=== PATIENT | female | born 1960 | race Hispanic/Latino ===

== ENCOUNTER 2016-12-25 14:06 | Inpatient (IN) | payer MEDICARE ==
[2016-12-25] VITALS (7 sets, daily range): BP systolic 100–128; BP diastolic 62–83; PULSE 74–122; RESP 15–26; O2SAT 95–100
[~2016-12-25] VITALS: Ht 157.5 cm; Wt 96.6 kg
[~2016-12-25 14:06] MED LIST: DSS100 PO; GABA300C PO; HYDR-3479 PO; INSLIS SUBQ; INSU100V7 SUBQ; METF10002 PO
--- NOTE | 2016-12-25 14:48 | ED.REPORT ---
HPI-Abd Pain F 40 and Over Date of Service December 25, 2016 ED Provider: Vini Huertas MD Patient is a 56 year old female with history of HTN and DM presents to [facility] ED accompanied by her c/o RLQ abdominal pain and fever for about three days. Patient reports being seen in the clinic on 12/20 and given an antibiotic (patient does not remember the name). She reports worsening of her symptoms since then: nausea, decreased appetite, increased urination, headache, weakness, chest pain and shortness of breath. Her blood glucose is higher then usual as well; its been as high as 570 (usually blood sugar is about 200); she is on insulin and metformin daily. Nursing Notes Stated Complaint: TEMP/ABDOMINAL PAIN-SENT FROM Chief Complaint: Female Abdominal Pain Nursing Notes Reviewed: Yes Allergies: Coded Allergies: No Known Allergies (Verified , 03/16/04) Scheduled Citalopram Hydrobromide (Celexa) 20 Mg Tablet 20 MG PO DAILY Gabapentin (Gabapentin) 300 Mg Capsule 300 MG PO HS Insulin Aspart (NovoLOG U-100 Pen) 100 Unit/Ml Insuln.pen 20 SUBQ TIDWM Insulin Glargine (Lantus U100 Solostar Insulin Pen) 100 Unit/1 Ml Insuln.pen 50 UNIT SUBQ HS Lisinopril (Lisinopril) 5 Mg Tablet 5 MG PO DAILY Metformin (Glucophage) 1,000 Mg Tablet 1,000 MG PO BID Ranitidine (Ranitidine) 150 Mg Capsule 150 MG PO BID Scheduled PRN Cyclobenzaprine (Cyclobenzaprine) 10 Mg Tablet 10 MG PO TID PRN PRN Spasm General Time Seen by MD: 14:46 Chief Complaint Abdominal pain, Flank pain right (with the assistance of spanish interpreter/translator), Nausea Hx Obtained From: Patient Arrived By: Walk-in Sudden in Onset?: No Onset Occurred: 6 days ago Symptom Duration: Since onset Progression since Onset: Constant, Gradually worsening Location: : Flank right: RLQ Quality: Painful Severity: Current: Moderate Severity: Maximum: Severe Associated with: Reports: Chest pain, Chills, Fever, Nausea, Urinary frequency Recent Healthcare: No recent hospitalization, Recent doctor visit Similar Sx Previous: Yes Past Medical History Past Medical History Reports: Diabetes mellitus, Hypertension Past Surgical History Reports: Cholecystectomy Family History Noncontributory Smoking History Never Smoker Social History Alcohol Use: Denies alcohol use Drug Use: Denies drug use Other Social History: Local resident Ambulatory Status Independent Review of Systems +elevated blood sugar Constitutional: Reports: Fever, Weakness - generalized Respiratory: Reports: Shortness of breath, Denies: Dyspnea on exertion, Pleuritic pain, Wheezing GI: Reports: Abdominal pain, Nausea, Denies: Constipation, Diarrhea, Vomiting Female: Reports: Urinary frequency, Denies: Dysuria, Hematuria, Incontinence Musculoskeletal: Denies: Back pain, Extremity pain, Extremity swelling Complete sys rev & neg: except as marked. Physical Exam Vital Signs Vital Signs (First) Date Time Temp Pulse Resp B/P Pulse Ox O2 Delivery O2 Flow Rate FiO2 12/25/16 14:11 39.5 122 18 128/83 98 Room Air Initial VS: Reviewed, Vital signs abnormal (Pulse 122, temperature 39.5) General/Constitutional: Awake, Alert, No acute distress, Well appearing, Well developed, Well hydrated, Well nourished, Cooperative Respiratory / Chest: Atraumatic, Breath sounds NL, Breath sounds = bilat, No respiratory distress, No rales, No rhonchi, No wheezing Cardiovascular: Regular rhythm, Heart sounds NL, No murmurs, Cap refill not delayed Heart Rate / Rhythm: Positive: Tachycardia Abdomen: Atraumatic, Soft, No guarding, No rebound, BS normoactive Tenderness/Guarding/Rebound: Positive: Tender RLQ... (Moderate), Tender flank R Flank / Spine / Paraspinal: Positive: Flank tender R Head / Eyes: Atraumatic, Normocephalic, PERRL, EOMI, No scleral icterus, Conjunctiva NL ENT: Atraumatic, Mucous membranes moist, Nose exam NL Skin: No rash, Warm, Dry, Intact Lower Extremity / Pelvis / MS: No swelling, Non-tender, No erythema Interpretation & Diagnostics Lab Results Interpretation Result Diagram: 12/25/16 1615 12/25/16 1615 Test 12/25/16 15:56 12/25/16 16:15 Urine Color Yellow (YELLOW) Urine Appearance Clear (CLEAR,HAZY) Urine pH 5.0 (5.0-8.0) Urine Specific [place] 1.025 (1.003-1.035) Urine Protein 30mg/dL (NEG,TRACE) Urine Glucose (UA) 500mg/dL (NEGATIVE) Urine Ketones 15mg/dL (NEGATIVE) Urine Occult Blood Moderate (NEGATIVE) Urine Nitrite Negative (NEGATIVE) Urine Bilirubin Negative (NEGATIVE) Urine Urobilinogen Normalmg/dL (NORMAL) Urine Leukocyte Esterase Negative (NEGATIVE) Urine RBC 0-2/hpf (0-2) Urine WBC 0-5/hpf (0-5) Urine Epithelial Cells Few/hpf (NONE-MOD) Urine Crystals None seen (NONE SEEN) Urine Bacteria Few/hpf (NONE-FEW) Urine Hyaline Casts None/lpf (NONE) Urine Granular Casts Occasional (NONE SEEN) Urine Waxy Casts None seen (NONE SEEN) Urine Red Blood Cell Casts None seen (NONE SEEN) Urine White Blood Cell Casts None seen (NONE SEEN) Urine Mucus None seen (None Seen) Urine Trichomonas None seen (NONE SEEN) Urine Yeast None (NONE SEEN) Urinalysis Comment Amorphous sediment Urine Culture Reflexed Not indicated White Blood Count 8.2th/mm3 (3.8-10.1) Red Blood Count 4.73mil/mm3 (3.90-5.20) Hemoglobin 14.0g/dL (12.0-15.6) Hematocrit 40.9% (35.0-46.0) Mean Corpuscular Volume 86.5fL (81-100) Mean Corpuscular Hemoglobin 29.6pg (27.0-35.0) Mean Corpuscular Hemoglobin Concent 34.2% (32.0-37.0) Red Cell Distribution Width 13.2% (12.3-15.4) Platelet Count 227bil/L (150-400) Neutrophils (%) (Auto) 75.9% (40-74) Lymphocytes (%) (Auto) 15.3% (14-46) Monocytes (%) (Auto) 8.2% (4-12) Eosinophils (%) (Auto) 0% (0-5) Basophils (%) (Auto) 0.2% (0-3) Sodium Level 130mEq/L (134-144) Potassium Level 4.1mEq/L (3.5-5.2) Chloride Level 91mEq/L (97-108) Carbon Dioxide Level 19mmol/L (18-29) Blood Urea Nitrogen 14mg/dL (6-24) Creatinine 0.92mg/dL (0.57-1.00) Estimat Glomerular Filtration Rate 90mL/min (>59) Glucose Level 299mg/dL (60-99) Calcium Level 8.9mg/dL (8.5-10.1) Phosphorus Level 2.8mg/dL (2.5-4.9) Magnesium Level 1.3mg/dL (1.6-2.6) Total Bilirubin 0.3mg/dL (0.0-1.2) Aspartate Amino Transf (AST/SGOT) 31U/L (0-50) Alanine Aminotransferase (ALT/SGPT) 39U/L (0-32) Alkaline Phosphatase 121U/L (25-150) Troponin T < 0.010ug/L (0.0-0.011) Total Protein 7.1g/dL (6.4-8.4) Albumin 3.3g/dL (3.4-5.0) Lipase 12U/L (13-60) General Lab Results Interp 1: CMP normal except (Na 130, blood glucose 299, ALT 39 Mg 1.3), CBC normal General Lab Results Interp 2: Lactate level elevated (2.6) Urinalysis Interpretation Positive blood (moderate), Positive glucose (500), Positive ketones (15) ECG Interpretation ECG Interpretation: Sinus tachycardia, rate [address] changes No T wave abnormalities Time: 16:15 Interpreted by: ED physician X-Ray Chest Interpretation Chest Xray Interpretation: No acute cardiopulmonary disease. Interpretation / Wet Read by: Interpret - Radiologist CT Abd / Pelvis Interpretation Acute right pyelonephritis. Normal appendix. Study type: Abdominal CT IV contrast Interpretation / Wet Read by: Interpret - Radiologist Re-Eval/Medical Decision Med Decision/Clinical Course A 56 year old female with h/o HTN and DM presenting to ED c/o fever and right sided lower abdomen and right flank pain. Patient meets sepsis criteria: pulse 122, temperature 39.5, right pyelonephritis on CT abdomen/pelvis. Laboratory findings significant for mild hyponatremia, hyperglycemia, elevated lactic acid, ALT and low magnesium. Chest x-ray is normal. UA positive for blood , glucose, ketones and protein. In ED, patient was given Tylenol 975 mg PO, NS IV 1 L, Rocephin 2 g IV. Test results and need for admission were discussed with the patient. She agrees with the plan. Patient's case has been discussed with the night hospitalist, Dr. Posadas, why agrees the the assessment, plan, and need for admission. Source of Hx: Old records Re-Evaluation/Progress : Time of Eval: 18:45 Patient Status: Mild relief Counseled Regarding: Diagnosis, Lab results Discharge & Departure Primary Impression: Acute pyelonephritis Additional Impressions: Flank pain Elevated lactic acid level SIRS (systemic inflammatory response syndrome) Disposition: ADMITTED TO HOSPITAL Discharge Condition All VS Reviewed: Yes Condition: Stable Referrals: Diana Nava MD (PCP) EDSupervising Provider for APC: Vini Huertas MD Scribe Attestation Portions of this note were transcribed by Taryn Pham. I, Dr. Huertas personally performed the history, physical exam and medical decision-making; I reviewed and confirmed the accuracy of the information in the transcribed note. Signed by: Dillon Walters 12/25/2016 at [Time]. Attending Statement Attending attestation: I saw this patient in conjunction with the above named resident. I was present for all mccullough portions of the history taking and physical examination. I agree with the workup, evaluation, treatment and disposition. Vini Huertas MD copies to: Diana Nava MD, Beck O MD December 25, 2016 14:48 Taryn Pham December 25, 2016 14:56 Dayanara Starr DO December 25, 2016 16:17
[2016-12-25] MEDS ORDERED: 0.9% Sodium Chloride 1,000 ML IV ONE (15:39)
[2016-12-25 16:19] LABS: APPEARANCE,URINE CLEAR (CLEAR,HAZY); COLOR,URINE YELLOW (YELLOW); OCCULT BLOOD,URINE MODERATE (NEGATIVE); UROBILINOGEN,URINE NORMAL (NORMAL)
[2016-12-25 16:31] LABS: BASOPHILS % (AUTO) 0.2 % (0-3); EOSINOPHILS % (AUTO) 0 % (0-5); MONOCYTES % (AUTO) 8.2 % (4-12); Mean Corpuscular Hemoglobin 29.6 pg (27.0-35.0); Mean Corpuscular Volume 86.5 fL (81-100); NEUTROPHILS % (AUTO) 75.9 % (40-74); Platelet Count 227 bil/L (150-400)
[2016-12-25 17:11] LABS: Lipase 12 U/L (13-60); Magnesium 1.3 mg/dL (1.6-2.6)
[2016-12-25 17:14] LABS: TROPONIN T < 0.010 ug/L (0.0-0.011)
--- NOTE | 2016-12-25 18:13 | DRSVH ---
PROCEDURE: CT ABDOMEN AND PELVIS WITH CONTRAST ([id number]) INDICATIONS: 56 year-old female with right flank and right lower quadrant abdominal pain. TECHNIQUE: After the administration of intravenous contrast, 5 mm thick sections acquired from the diaphragm to the symphysis. 5 mm coronal and sagittal reformats were acquired. For radiation dose reduction, the following was used: automated exposure control, adjustment of mA and/or kV according to patient siz e. COMPARISON: None. FINDINGS: Image quality: Excellent. ABDOMEN: Lung bases: Lung bases are clear. Heart size is normal. Solid organs: Liver and spleen are normal in size, with diffuse fatty infiltration of the liver. Ga llbladder is surgically absent. Biliary system is non dilated. Pancreas enhances normally. No adre nal nodules. Kidneys demonstrate normal size, without hydronephrosis. There is ill-defined geographi c hypoenhancement involving the right kidney, along with mild perinephric inflammatory fat stranding Peritoneum and bowel: Bowel loops demonstrate normal wall thickness and caliber. The appendix is no rmal in caliber on axial image 16. No free fluid or air. On axial image 73, 1.2 cm peripherally calci fied body lies within the left pelvis. Nodes and vessels: No retroperitoneal or mesenteric adenopathy by size criteria. Aorta and inferior vena cava are normal in size. Miscellaneous: No ventral hernias. PELVIS: Genitourinary: Bladder wall thickness is normal. Uterus and ovaries are normal in size. Miscellaneous: No inguinal hernias or adenopathy. Bones: No suspicious bony lesions. No vertebral body compression fractures. IMPRESSION: 1. Constellation of findings consistent with acute right pyelonephritis. No pyonephrosis. Appendix ap pears normal. 2. 1.2 cm peripherally calcified left pelvic lesion, likely remote torsed epiploic appendage, of doub tful clinical significance. Dictated by: Olivier Houston M.D. on 12/25/2016 at 18:05 Approved by: Olivier Houston M.D. on 12/25/2016 at 18:11
--- NOTE | 2016-12-25 18:24 | DRSVH ---
PROCEDURE: X-RAY CHEST, TWO VIEWS ([id number]) INDICATIONS: 56 year-old female with fever for 4 days. TECHNIQUE: 2 views of the chest were acquired. COMPARISON: , , CHEST 2VW, 08/09/2014, 13:26. , , CH EST 2VW, 07/05/2014, 17:21. , , CHEST 1VW (PORTABLE), 02/02/2014, 1:33. FINDINGS: Surgical changes and devices: None. Lungs and pleura: No pleural effusions or pneumothorax. Lungs are clear. Mediastinum: Mediastinal contours are normal. Heart size is normal. There is aortic atherosclerosi s. Bones and chest wall: No suspicious bony abnormalities. Soft tissues appear unremarkable. IMPRESSION: No acute cardiopulmonary disease. Dictated by: Olivier Houston M.D. on 12/25/2016 at 18:22 Approved by: Oilvier Houston M.D. on 12/25/2016 at 18:23
[2016-12-25] MEDS ORDERED: cefTRIAXone Inj 2,000 MG in Dextrose 5% Minibag Plus 50 ML IV ONE (18:35)
[2016-12-25] MEDS ORDERED: INSU100I13 SUBQ (19:23)
[2016-12-25] MEDS ORDERED: LISI-571 PO (19:23)
[2016-12-25] MEDS ORDERED: INSU100I SUBQ (19:23)
[2016-12-25] MEDS ORDERED: CITA20TA PO (19:23)
[2016-12-25] MEDS ORDERED: METF1000 PO (19:23)
[2016-12-25] MEDS ORDERED: RANI150C4 PO (19:23)
[2016-12-25] MEDS ORDERED: GABA-502 PO (19:23)
[2016-12-25] MEDS ORDERED: CYCL10TA9 PO (19:23)
[2016-12-25] MEDS ORDERED: 0.9% Sodium Chloride 1,000 ML IV SCH (19:31)
[2016-12-25] MEDS ORDERED: Ondansetron 2 mg/mL 2 mL Inj IVPUSH PRN (19:35)
[2016-12-25] MEDS ORDERED: Alum-Mag Hydrox-Simeth 30 mL Suspension PO PRN (19:35)
[2016-12-25] MEDS ORDERED: Polyethylene Glycol (PEG) 17 Gm Powder PO PRN (19:35)
[2016-12-25] MEDS: 0.9% Sodium Chloride 1,000 ML IV SCH (20:05)
--- NOTE | 2016-12-25 20:32 | PCM.HPMED ---
Subjective Date of Service December 25, 2016 Primary Provider: Admitting Physician: Donaldo Posadas MD Primary Care Physician: Diana Nava MD Attending Physician: Donaldo Posadas MD Chief Complaint: Female Abdominal Pain History of Present Illness: Patient is a 56 year old female with history of hypertension and diabetes who presents to the [facility] emergency Department for Cadence 10 sharp right flank pain starting 12/20/2016. Patient visited Eliecer Harper who treated her with that antibiotic, patient could not remember the name. Since that time she has developed fevers, chills, nausea, mild diaphoresis, right flank pain, malaise, frequent urination, headache, decreased appetite. During this time her home sugars were very high and she states was above 500 and since the has not taken her home insulin. She reports taking all other home medications. She denies cough, vomiting, chest pain, shortness of breath, abdominal pain, change in bowel function. Upon admission in the emergency department patient's vitals are as follows; temperature 39.5 C, pulse 122, respiratory rate 18, blood pressure 128/83, pulse ox 98% on room air CBC within normal limits. Sodium 1:30, potassium 4.1, chloride 91, carbon dioxide 19, creatinine 0.92, glucose 299, lactic acid 2.6, magnesium 1.3, ALT 39, troponin negative, lipase 12. Chest x-ray with no acute cardiopulmonary disease CT abdomen 1. Constellation of findings consistent with acute right pyelonephritis. No pyonephrosis. Appendix appears normal. 2. 1.2 cm peripherally calcified left pelvic lesion, likely remote torsed epiploic appendage, of doubtful clinical significance. In the emergency department patient was given IV ceftriaxone, acetaminophen, 1 L normal saline. Review of Systems: A comprehensive review of systems was conducted with the patient and found to be negative except as above in the History of Present Illness. Allergies Coded Allergies: No Known Allergies (Verified , 03/16/04) Home Medications Amitriptyline 10 mg 3 times a day Amitriptyline 50 mg at night Cholestyramine 4 g oral powder 3 times a day Hydrocodone acetaminophen 5-500 Gabapentin (Gabapentin) 300 Mg Capsule 300 MG PO HS Insulin Aspart (NovoLOG U-100 Pen) 100 Unit/Ml Insuln.pen 20 SUBQ TIDWM Insulin Glargine (Lantus U100 Solostar Insulin Pen) 100 Unit/1 Ml Insuln.pen 50 UNIT SUBQ HS Metformin (Glucophage) 1,000 Mg Tablet 1,000 MG PO BID Trazodone 100 mg 2 tabs at night. Omeprazole 20 mg at night. PMH Diabetes mellitus Hypertension Surgical History Cholecystectomy Hysterectomy Family History Patient does not know. Social History Hx Alcohol Use: No Hx Substance Use: No Hx Tobacco Use: No Smoking Status: Never Smoker Exam Vital Signs Vital Sign - Last Date Time Temp Pulse Resp B/P Pulse Ox O2 Delivery O2 Flow Rate FiO2 12/25/16 20:24 76 16 100/62 99 Room Air 12/25/16 17:21 37.0 Exam Initial VS: Reviewed, Vital signs abnormal (Pulse 122, temperature 39.5) General/Constitutional: Awake, Alert, No acute distress, Well appearing, Well developed, Well hydrated, Well nourished, Cooperative Respiratory / Chest: Atraumatic, Breath sounds NL, Breath sounds = bilat, No respiratory distress, No rales, No rhonchi, No wheezing Cardiovascular: Regular rhythm, Heart sounds NL, No murmurs, Cap refill not delayed Heart Rate / Rhythm: Positive: Tachycardia Abdomen: Atraumatic, Soft, No guarding, No rebound, BS normoactive Tenderness/Guarding/Rebound: Positive: Tender RLQ... (Moderate), Tender flank R Flank / Spine / Paraspinal: Positive: Flank tender R Head / Eyes: Atraumatic, Normocephalic, PERRL, EOMI, No scleral icterus, Conjunctiva NL ENT: Atraumatic, Mucous membranes moist, Nose exam NL Skin: No rash, Warm, Dry, Intact Lower Extremity / Pelvis / MS: No swelling, Non-tender, No erythema Lab and Diagnostics Result Diagram: 12/25/16 1615 12/25/16 1615 X-Rays, CTs and MRIs CT ABDOMEN AND PELVIS WITH CONTRAST IMPRESSION: 1. Constellation of findings consistent with acute right pyelonephritis. No pyonephrosis. Appendix appears normal. 2. 1.2 cm peripherally calcified left pelvic lesion, likely remote torsed epiploic appendage, of doubtful clinical significance. Dictated by: Olivier Houston M.D. on 12/25/2016 at 18:05 Assessment & Plan Patient is a 56 year old female with history of HTN and DM presents to [facility] ED accompanied by her c/o RLQ abdominal pain and fever for about three days. Patient reports being seen in the clinic on 12/20 and given an antibiotic (patient does not remember the name). She reports worsening of her symptoms since then: nausea, decreased appetite, increased urination, headache, weakness, chest pain and shortness of breath. Her blood glucose is higher then usual as well; its been as high as 570 (usually blood sugar is about 200); she is on insulin and metformin daily. 1. Acute Sepsis, present on admission. Active. - Temperature 39.5, pulse 122, lactic acid 2.6 white count 8.2 and neuts 75.9%. - Lactic acid elevated 2.6 on admission. We will trend every 2 hours until below 2. Currently at 1.6. - Continue IV NS. - IV Ceftriaxone. 2. Acute Pyelonephritis. Present on admission. Active. - CT abdomen per above. - IV ceftriaxone received in the emergency department. Continue antibiotics. 3. Acute Hyponatremia, present on admission. Active. - Sodium upon admission is 130. - Receiving IV normal saline. - Repeat morning labs. 4. Acute hypomagnesemia, present on admission. Active. - 2 g mag replacement given. - Repeat with morning labs. 5. Insulin-dependent type II diabetes. Present admission. Active. - Holding home metformin. - Glucose 299. - A1c pending. - Medium nutritional correctional insulin. - Diabetic diet. - Continue IV fluids. 6. Chronic hypertension, not present on admission. Stable. - Home lisinopril discontinued at some point. 7. Chronic GERD. Stable. - Continue home medications. 8. History of Depression. Stable. - Continue home medications. 9. Chronic insomnia, present on admission. Active. - Continue home amitriptyline 10 mg 3 times a day, 50 mg at night. 10 . Chronic diarrhea, not present on admission. Stable. - Continue home cholestyramine. Acetaminophen for mild pain when necessary. Bowel regimen Senna and MiraLAX scheduled and PRN. Zofran when necessary for nausea and vomiting. SubQ heparin held for now. SCDs in place. Disposition: Patient has been admitted under inpatient status. Discharge is dependent upon infectious etiology. Discharge to home when medically stable. Pain Evaluation: Adequate Pain Control Resuscitation Status: CPR: Attempt Resuscitation VELIA SAVAGE DO December 25, 2016 20:32 Donaldo Posadas MD December 26, 2016 06:52 VELIA SAVAGE DO December 25, 2016 20:32
[2016-12-25] MEDS ORDERED: Glucose 40% Oral Gel 15 Gm Tube PO PRN (21:40)
[2016-12-25] MEDS: Insulin LISPRO 300 Unit/3 mL Inj SUBQ SCH (22:42)
[2016-12-26] MEDS: Sodium Chloride LOK Flush 10 mL Syringe IVFLUSH SCH ×6 (00:17→16:30)
[2016-12-26] MEDS: Heparin 5,000 Unit/mL Inj SUBQ SCH ×3 (00:38→16:41)
[2016-12-26 00:39] VITALS: BP 106/71; PULSE 65; RESP 16; O2SAT 96
[2016-12-26] MEDS: 0.9% Sodium Chloride 1,000 ML IV SCH ×3 (03:45→21:30)
[2016-12-26 04:02] VITALS: BP 122/77; PULSE 65; RESP 18; O2SAT 95
[2016-12-26] MEDS ORDERED: Magnesium Sulf 2 Gm/50mL Water 2 GM in IV Premix 1 EACH IV ONE (04:05)
[2016-12-26 05:57] LABS: BASOPHILS % (AUTO) 0.2 % (0-3); EOSINOPHILS % (AUTO) 0.5 % (0-5); MONOCYTES % (AUTO) 12.5 % (4-12); Mean Corpuscular Hemoglobin 29.8 pg (27.0-35.0); NEUTROPHILS % (AUTO) 67.4 % (40-74); Platelet Count 241 bil/L (150-400)
[2016-12-26] MEDS: Insulin LISPRO 300 Unit/3 mL Inj SUBQ SCH ×4 (08:24→21:31)
[2016-12-26] MEDS: cefTRIAXone Inj 2,000 MG in Dextrose 5% Minibag Plus 50 ML IV SCH (09:33)
[2016-12-26 10:01] VITALS: BP 120/77; PULSE 62; RESP 18; O2SAT 98
--- NOTE | 2016-12-26 11:54 | PCM.PNMED ---
Subjective Date of Service December 26, 2016 Subjective Flank pain improving. Afebrile. Had episodes of loose stools overnight. Exam Vital Signs Vital Sign - Last Date Time Temp Pulse Resp B/P Pulse Ox O2 Delivery O2 Flow Rate FiO2 12/26/16 10:01 36.6 62 18 120/77 98 Room Air Intake and Output 12/25/16 12/25/16 12/26/16 Cumulative From/Thru 15:00 23:00 07:00 12/25/16 14:11 - 12/26/16 06:14 Intake Total 1000 ml 1603 ml 2603 ml Output Total 1330 ml 1330 ml Balance 1000 ml 273 ml 1273 ml Intake Oral 400 ml 400 ml IV Total 1000 ml 1203 ml 2203 ml Output Urine Total 1330 ml 1330 ml # Bowel Movements 0 0 Exam General/Constitutional: Awake, Alert, No acute distress, Well appearing, Well developed, Well hydrated, Well nourished, Cooperative Respiratory / Chest: Atraumatic, Breath sounds NL, Breath sounds = bilat, No respiratory distress, No rales, No rhonchi, No wheezing Cardiovascular: Regular rhythm, Heart sounds NL, No murmurs, Cap refill not delayed Heart Rate / Rhythm: Positive: Tachycardia Abdomen: Atraumatic, Soft, No guarding, No rebound, BS normoactive Tenderness/Guarding/Rebound: Positive: Tender RLQ... (Moderate), Tender flank R Flank / Spine / Paraspinal: Positive: Flank tender R Head / Eyes: Atraumatic, Normocephalic, PERRL, EOMI, No scleral icterus, Conjunctiva NL ENT: Atraumatic, Mucous membranes moist, Nose exam NL Skin: No rash, Warm, Dry, Intact Lower Extremity / Pelvis / MS: No swelling, Non-tender, No erythema IVs and Medications Medications Reviewed: Medications were reviewed in detail Lab and Diagnostics Result Diagram: 12/26/1654412/26/16544 X-Rays, CTs and MRIs CT ABDOMEN AND PELVIS WITH CONTRAST IMPRESSION: 1. Constellation of findings consistent with acute right pyelonephritis. No pyonephrosis. Appendix appears normal. 2. 1.2 cm peripherally calcified left pelvic lesion, likely remote torsed epiploic appendage, of doubtful clinical significance. Dictated by: Olivier Houston M.D. on 12/25/2016 at 18:05 Assessment & Plan Patient is a 56 year old female with history of HTN and DM presents to [facility] ED accompanied by her c/o RLQ abdominal pain and fever for about three days. Patient reports being seen in the clinic on 12/20 and given an antibiotic (patient does not remember the name). She reports worsening of her symptoms since then: nausea, decreased appetite, increased urination, headache, weakness, chest pain and shortness of breath. Her blood glucose is higher then usual as well; its been as high as 570 (usually blood sugar is about 200); she is on insulin and metformin daily. 1. Acute Sepsis, present on admission. Resolved - Temperature 39.5, pulse 122, lactic acid 2.6 white count 8.2 and neuts 75.9%. - Lactic acid elevated 2.6 on admission. We will trend every 2 hours until below 2. Currently at 1.6. - Continue IV NS. - IV Ceftriaxone. 2. Acute Pyelonephritis. Present on admission. Active. - CT abdomen per above. - IV ceftriaxone received in the emergency department. Continue antibiotics. 3. Acute Hyponatremia, present on admission. Active. - Sodium upon admission is 130. - Receiving IV normal saline. - Repeat morning labs. 4. diarrhea -will send c.dif 5. Insulin-dependent type II diabetes. Present admission. Active. - Holding home metformin. -continue home insulin lantus 50 u hs and 20 u tid - Glucose 299. - A1c pending. - Medium nutritional correctional insulin. - Diabetic diet. - Continue IV fluids. 6. Chronic hypertension, not present on admission. Stable. - Home lisinopril discontinued at some point. 7. Chronic GERD. Stable. - Continue home medications. 8. History of Depression. Stable. - Continue home medications. 9. Chronic insomnia, present on admission. Active. - Continue home amitriptyline 10 mg 3 times a day, 50 mg at night. 10 . Chronic diarrhea, not present on admission. Stable. - Continue home cholestyramine. 11. Acute hypomagnesemia, present on admission. Active. - 2 g mag replacement given. - Repeat normal Acetaminophen for mild pain when necessary. Bowel regimen Senna and MiraLAX scheduled and PRN. Zofran when necessary for nausea and vomiting. SubQ heparin held for now. SCDs in place. Disposition: Patient has been admitted under inpatient status. Discharge is dependent upon infectious etiology. Discharge to home when medically stable. disposition dc in 1-2 days VTE Mechanical Devices: Intermittant Pneumatic CD Resuscitation Status: CPR: Attempt Resuscitation Juan R Unger MD December 26, 2016 11:54
[2016-12-26] MEDS ORDERED: INSULIN ASPART U SUBQ SCH (12:00)
[2016-12-26 17:07] VITALS: BP 135/77; PULSE 83; RESP 20; O2SAT 99
[2016-12-26 20:09] VITALS: BP 148/87; PULSE 86; RESP 18; O2SAT 98
[2016-12-26] MEDS ORDERED: Insulin GLARgine 100 Unit/mL Syringe SUBQ SCH (21:00)
[2016-12-27] MEDS: Sodium Chloride LOK Flush 10 mL Syringe IVFLUSH SCH ×4 (00:30→08:05)
[2016-12-27] MEDS: Heparin 5,000 Unit/mL Inj SUBQ SCH ×2 (00:57→08:06)
[2016-12-27] MEDS: 0.9% Sodium Chloride 1,000 ML IV SCH (03:31)
[2016-12-27 05:16] VITALS: BP 116/79; PULSE 83; RESP 20; O2SAT 96
[2016-12-27 05:54] LABS: BASOPHILS % (AUTO) 0.3 % (0-3); EOSINOPHILS % (AUTO) 0.6 % (0-5); MONOCYTES % (AUTO) 11.3 % (4-12); Mean Corpuscular Hemoglobin 29.3 pg (27.0-35.0); Mean Corpuscular Volume 85.1 fL (81-100); NEUTROPHILS % (AUTO) 54.8 % (40-74); Platelet Count 257 bil/L (150-400)
[2016-12-27 06:07] LABS: Magnesium 1.6 mg/dL (1.6-2.6)
[2016-12-27] MEDS: Insulin LISPRO 300 Unit/3 mL Inj SUBQ SCH (08:04)
[2016-12-27 08:12] VITALS: BP 130/82; PULSE 72; RESP 18; O2SAT 99
--- NOTE | 2016-12-27 08:32 | PCM.DIMED ---
Discharge Instructions Date of Service December 27, 2016 Dates of Hospitalization December 25, 2016 at 20:06 Discharge Diagnosis Discharge Diagnosis 1. Acute Sepsis, present on admission. Resolved 2. Acute Pyelonephritis. Present on admission. Active. 3. Acute Hyponatremia, present on admission. Active. 4.diarrhea,chronic 5. Insulin-dependent type II diabetes. Present admission. Active. 6. Chronic hypertension, not present on admission. Stable. 7. Chronic GERD. Stable. 8. History of Depression. Stable. 9. Chronic insomnia, present on admission. Active. Test Results Test Results CT scan right pyelonephritis Diet Discharge Diet: Diabetic Activity Discharge Activity: Limited until seen by PCP Call your provider Call your provider for: Fever or Chills, Shortness of breath, Bleeding, Chest pain, Vomitting, Excessive diarrhea, Weakness (unilateral) Patient Instructions Patient Instructions You were hospitalized due to right pyelonephrosis ( kidney infection ) . Please continue Keflex for 8 more days .Please follow up with PCP in 1 week . Follow-up Provider: Diana Nava MD Follow-up with PCP in: 1 week Juan R Unger MD December 27, 2016 08:32
[2016-12-27] MEDS ORDERED: OXYC1TAB24 PO (08:34)
[2016-12-27] MEDS ORDERED: CEPH-512 PO (08:34)
[2016-12-27] MEDS: cefTRIAXone Inj 2,000 MG in Dextrose 5% Minibag Plus 50 ML IV SCH (09:02)
--- NOTE | 2016-12-27 10:14 | PCM.DC.MED ---
Discharge Summary Date of Service December 27, 2016 Dates of Hospitalization Date of Hospital Admission December 25, 2016 at 20:06 Date of Discharge: December 27, 2016 Providers: Admitting Physician: Donaldo Posadas MD Primary Care Physician: Diana Nava MD Attending Physician: Donaldo Posadas MD Diagnosis at Time of Discharge Diagnosis at Time of Discharge 1. Acute Sepsis, present on admission. Resolved 2. Acute Pyelonephritis. Present on admission. Active. 3. Acute Hyponatremia, present on admission. Active. 4.diarrhea,chronic 5. Insulin-dependent type II diabetes. Present admission. Active. 6. Chronic hypertension, not present on admission. Stable. 7. Chronic GERD. Stable. 8. History of Depression. Stable. 9. Chronic insomnia, present on admission. Active. Consultations none Procedures XRay, CTs & MRIs CT ABDOMEN AND PELVIS WITH CONTRAST IMPRESSION: 1. Constellation of findings consistent with acute right pyelonephritis. No pyonephrosis. Appendix appears normal. 2. 1.2 cm peripherally calcified left pelvic lesion, likely remote torsed epiploic appendage, of doubtful clinical significance. Dictated by: Olivier Houston M.D. on 12/25/2016 at 18:05 Brief History per HPI Patient is a 56 year old female with history of hypertension and diabetes who presents to the [facility] emergency Department for Cadence 10 sharp right flank pain starting 12/20/2016. Patient visited Eliecer Harper who treated her with that antibiotic, patient could not remember the name. Since that time she has developed fevers, chills, nausea, mild diaphoresis, right flank pain, malaise, frequent urination, headache, decreased appetite. During this time her home sugars were very high and she states was above 500 and since the has not taken her home insulin. She reports taking all other home medications. She denies cough, vomiting, chest pain, shortness of breath, abdominal pain, change in bowel function. Upon admission in the emergency department patient's vitals are as follows; temperature 39.5 C, pulse 122, respiratory rate 18, blood pressure 128/83, pulse ox 98% on room air CBC within normal limits. Sodium 1:30, potassium 4.1, chloride 91, carbon dioxide 19, creatinine 0.92, glucose 299, lactic acid 2.6, magnesium 1.3, ALT 39, troponin negative, lipase 12. Chest x-ray with no acute cardiopulmonary disease CT abdomen 1. Constellation of findings consistent with acute right pyelonephritis. No pyonephrosis. Appendix appears normal. 2. 1.2 cm peripherally calcified left pelvic lesion, likely remote torsed epiploic appendage, of doubtful clinical significance. In the emergency department patient was given IV ceftriaxone, acetaminophen, 1 L normal saline. Hospital Course Patient is a 56 year old female with history of HTN and DM presents to [facility] ED accompanied by her c/o RLQ abdominal pain and fever for about three days. Patient reports being seen in the clinic on 12/20 and given an antibiotic (patient does not remember the name). She reports worsening of her symptoms since then: nausea, decreased appetite, increased urination, headache, weakness, chest pain and shortness of breath. Her blood glucose is higher then usual as well; its been as high as 570 (usually blood sugar is about 200); she is on insulin and metformin daily. 1. Acute Sepsis, present on admission. Resolved - Temperature 39.5, pulse 122, lactic acid 2.6 white count 8.2 and neuts 75.9%. - Initial Lactic acid elevated 2.6 on admission. resolved -treated with IV NS. -treated with IV Ceftriaxone.pain improved,urine culture was not sent on admission ,sent later .will discharge on keflex for 6 days given response to ceftriaxone 2. Acute Pyelonephritis. Present on admission. Active. - CT abdomen per above. - treated with IV Ceftriaxone.pain improved,urine culture was not sent on admission ,sent later .will discharge on keflex for 6 days given response to ceftriaxone Blood culture negative 2 3. Acute Hyponatremia, present on admission. Active. - Sodium upon admission is 130. -Resolved with IV normal saline. 4. diarrhea -c.dif negative 5. Insulin-dependent type II diabetes. Present admission. Active. - Resume home metformin. -continue home insulin lantus 50 u hs and 20 u tid - Glucose 299. - A1c 9.7 6. Chronic hypertension, not present on admission. Stable. 7. Chronic GERD. Stable. - Continue home medications. 8. History of Depression. Stable. - Continue home medications. 9. Chronic insomnia, present on admission. Active. - Continue home amitriptyline 10 mg 3 times a day, 50 mg at night. 10 . Chronic diarrhea, not present on admission. Stable. - Continue home cholestyramine. 11. Acute hypomagnesemia, present on admission. Active. - 2 g mag replacement given. - Repeat normal Discharged home Condition on discharge stable Exam Vital Signs (Last) Date Time Temp Pulse Resp B/P Pulse Ox O2 Delivery O2 Flow Rate FiO2 12/27/16 08:12 37.2 72 18 130/82 99 Room Air Exam General/Constitutional: Awake, Alert, No acute distress, Well appearing, Well developed, Well hydrated, Well nourished, Cooperative Respiratory / Chest: Atraumatic, Breath sounds NL, Breath sounds = bilat, No respiratory distress, No rales, No rhonchi, No wheezing Cardiovascular: Regular rhythm, Heart sounds NL, No murmurs, Cap refill not delayed Heart Rate / Rhythm: Positive: Tachycardia Abdomen: Atraumatic, Soft, No guarding, No rebound, BS normoactive Tenderness/Guarding/Rebound: Positive: Tender RLQ... (Moderate), Tender flank R Flank / Spine / Paraspinal: Positive: Flank tender R Head / Eyes: Atraumatic, Normocephalic, PERRL, EOMI, No scleral icterus, Conjunctiva NL ENT: Atraumatic, Mucous membranes moist, Nose exam NL Skin: No rash, Warm, Dry, Intact Lower Extremity / Pelvis / MS: No swelling, Non-tender, No erythema Test 12/25/16 15:56 12/25/16 16:15 12/26/16 00:31 12/26/16 05:45 Urine Color Yellow (YELLOW) Urine Appearance Clear (CLEAR,HAZY) Urine pH 5.0 (5.0-8.0) Urine Specific [place] 1.025 (1.003-1.035) Urine Protein 30mg/dL (NEG,TRACE) Urine Glucose (UA) 500mg/dL (NEGATIVE) Urine Ketones 15mg/dL (NEGATIVE) Urine Occult Blood Moderate (NEGATIVE) Urine Nitrite Negative (NEGATIVE) Urine Bilirubin Negative (NEGATIVE) Urine Urobilinogen Normalmg/dL (NORMAL) Urine Leukocyte Esterase Negative (NEGATIVE) Urine RBC 0-2/hpf (0-2) Urine WBC 0-5/hpf (0-5) Urine Epithelial Cells Few/hpf (NONE-MOD) Urine Crystals None seen (NONE SEEN) Urine Bacteria Few/hpf (NONE-FEW) Urine Hyaline Casts None/lpf (NONE) Urine Granular Casts Occasional (NONE SEEN) Urine Waxy Casts None seen (NONE SEEN) Urine Red Blood Cell Casts None seen (NONE SEEN) Urine White Blood Cell Casts None seen (NONE SEEN) Urine Mucus None seen (None Seen) Urine Trichomonas None seen (NONE SEEN) Urine Yeast None (NONE SEEN) Urinalysis Comment Amorphous sediment Urine Culture Reflexed Not indicated Phosphorus Level 2.8mg/dL (2.5-4.9) Troponin T < 0.010ug/L (0.0-0.011) Lipase 12U/L (13-60) Lactic Acid Level 1.6mmol/L (0.4-2.0) Hemoglobin A1c 9.7% (4.8-5.6) Test 12/27/16 04:47 White Blood Count 7.1th/mm3 (3.8-10.1) Red Blood Count 4.16mil/mm3 (3.90-5.20) Hemoglobin 12.2g/dL (12.0-15.6) Hematocrit 35.4% (35.0-46.0) Mean Corpuscular Volume 85.1fL (81-100) Mean Corpuscular Hemoglobin 29.3pg (27.0-35.0) Mean Corpuscular Hemoglobin Concent 34.5% (32.0-37.0) Red Cell Distribution Width 13.1% (12.3-15.4) Platelet Count 257bil/L (150-400) Neutrophils (%) (Auto) 54.8% (40-74) Lymphocytes (%) (Auto) 32.7% (14-46) Monocytes (%) (Auto) 11.3% (4-12) Eosinophils (%) (Auto) 0.6% (0-5) Basophils (%) (Auto) 0.3% (0-3) Sodium Level 136mEq/L (134-144) Potassium Level 4.0mEq/L (3.5-5.2) Chloride Level 99mEq/L (97-108) Carbon Dioxide Level 21mmol/L (18-29) Blood Urea Nitrogen 12mg/dL (6-24) Creatinine 0.90mg/dL (0.57-1.00) Estimat Glomerular Filtration Rate 92mL/min (>59) Glucose Level 259mg/dL (60-99) Calcium Level 8.7mg/dL (8.5-10.1) Magnesium Level 1.6mg/dL (1.6-2.6) Total Bilirubin 0.2mg/dL (0.0-1.2) Aspartate Amino Transf (AST/SGOT) 28U/L (0-50) Alanine Aminotransferase (ALT/SGPT) 38U/L (0-32) Alkaline Phosphatase 142U/L (25-150) Total Protein 6.0g/dL (6.4-8.4) Albumin 3.4g/dL (3.4-5.0) Discharge Medications Discharge Medications Cephalexin (Keflex) 500 Mg Capsule 500 MG PO TID Prescribed by: JUAN R UNGER MD Citalopram Hydrobromide (Celexa) 20 Mg Tablet 20 MG PO DAILY (Reported) Gabapentin (Gabapentin) 300 Mg Capsule 300 MG PO HS (Reported) Insulin Aspart (NovoLOG U-100 Pen) 100 Unit/Ml Insuln.pen 20 SUBQ TIDWM ( Reported) Insulin Glargine (Lantus U100 Solostar Insulin Pen) 100 Unit/1 Ml Insuln.pen 50 UNIT SUBQ HS (Reported) Lisinopril (Lisinopril) 5 Mg Tablet 5 MG PO DAILY (Reported) Metformin (Glucophage) 1,000 Mg Tablet 1,000 MG PO BID (Reported) Ranitidine (Ranitidine) 150 Mg Capsule 150 MG PO BID (Reported) As needed Cyclobenzaprine (Cyclobenzaprine) 10 Mg Tablet 10 MG PO TID PRN PRN Spasm ( Reported) oxyCODONE-Acetaminophen 5-325 mg (oxyCODONE-Acetaminophen 5-325 mg) 1 Each Tablet 1 TAB PO Q4H PRN PRN For Pain Prescribed by: JUAN R UNGER MD Followup Plan Disposition: Home Discharge Diet: Diabetic Discharge Activity: Limited until seen by PCP Patient Instructions You were hospitalized due to right pyelonephrosis ( kidney infection ) . Please continue Keflex for 8 more days .Please follow up with PCP in 1 week . Follow-up Provider: Diana Nava MD Follow-up with PCP in: 1 week Time spent 35 minutes copies to: Diana Nava MD, Melaku MD December 27, 2016 10:14 Follow-up with PCP in: 1 week Juan R Unger MD December 27, 2016 10:14
== END 2016-12-27 11:45 | disposition home or self-care (01) | DRG 872 ==
LOC: SED 14:06 → OSC 20:06
PROVIDERS: ADMIT Hospitalist; ATTEND Hospitalist
DX: A41.9 Sepsis, unspecified organism (principal); N10 Acute pyelonephritis; E87.1 Hypo-osmolality and hyponatremia; E11.65 Type 2 diabetes mellitus with hyperglycemia; Z79.4 Long term (current) use of insulin; I10 Essential (primary) hypertension; K21.9 Gastro-esophageal reflux disease without esophagitis; F32.9 Major depressive disorder, single episode, unspecified; G47.00 Insomnia, unspecified; R19.7 Diarrhea, unspecified; E83.42 Hypomagnesemia